=== PATIENT | female | born 1945 | race Caucasian/White ===

== ENCOUNTER 2020-05-06 14:24 | Inpatient (IN) | payer MEDICARE, OTHER ==
[~2020-05-06] VITALS: Ht 160 cm; Wt 67.6 kg
[2020-05-06] MEDS ORDERED: TORADOL (14:34)
[2020-05-06] MEDS ORDERED: LOSARTAN (14:34)
[2020-05-06 16:03] LABS: BASOPHILS % (AUTO) 0.1 % (0.0-2.0); HEMATOCRIT 37.7 % (31.2-41.9); HEMOGLOBIN 12.4 g/dL (10.9-14.3); LYMPHOCYTES # (AUTO) 0.4 K/uL (20.0-40.0); LYMPHOCYTES % (AUTO) 4.3 % (20.5-51.5); MEAN CORPUSCULAR HEMOGLOBIN 29.7 uug (24.7-32.8); MEAN CORPUSCULAR HGB CONC 33 g/dL (32.3-35.6); MEAN CORPUSCULAR VOLUME 90.3 fL (75.5-95.3); MONOCYTES # (AUTO) 0.5 K/uL (2.0-10.0); MONOCYTES % (AUTO) 6.1 % (0.0-11.0); NEUTROPHILS % (AUTO) 89.5 % (38.5-71.5); PLATELET COUNT (AUTO) 308 K/uL (179-408); RED BLOOD CELL COUNT(AUTO) 4.17 MIL/uL (3.63-4.92); WHITE BLOOD COUNT (AUTO) 8.9 K/uL (3.8-11.8)
[2020-05-06 16:22] LABS: CREATININE 0.8 mg/dL (0.6-1.3); POTASSIUM 3.5 mmol/L (3.5-5.1)
[2020-05-06 16:28] LABS: BILIRUBIN,DIRECT 0.2 mg/dL (0.0-0.2); BILIRUBIN,TOTAL 0.5 mg/dL (0.2-1.0); TOTAL PROTEIN, SERUM 7.6 g/dL (6.4-8.2)
[2020-05-06 16:28] LABS: FERRITIN 537 ng/mL (8-252); LACTATE DEHYDROGENASE 520 U/L (81-234)
[2020-05-06 16:49] LABS: *BILIRUBIN,URIN NEGATIVE (NEGATIVE); *COLOR,URINE YELLOW (YELLOW); *KETONES,URINE 1+ (NEGATIVE); LEUKOCYTE ESTERASE ,URINE NEGATIVE (NEGATIVE); NITRITE, URINE NEGATIVE (NEGATIVE); PH,URINE 7.5 (5.0-8.0); UGLUCOSE NEGATIVE (NEGATIVE)
[2020-05-06 16:50] LABS: *BLOOD, URINE TRACE (NEGATIVE)
[2020-05-06 16:58] LABS: *CLARITY,URINE SLIGHTLY HAZY (CLEAR); BACTERIA,URINE NONE SEEN /HPF (NONE SEEN); SQUAMOUS EPITHELIAL CELL,UR FEW /HPF (NONE SEEN); WBC,URINE 0-3 /HPF (0-3)
[2020-05-06] MEDS ORDERED: IV NORMAL SALINE 250 ML IV ONE (16:59)
[2020-05-06] MEDS ORDERED: SWABABLE VALVE TRANSFER SET EA MC ONE (16:59)
[2020-05-06] MEDS ORDERED: IOHEXOL 350 100 ML INFUS..BTL ONE (16:59)
[2020-05-06] MEDS ORDERED: CEFTRIAXONE 1 G in IV DEXTROSE 5% 50 ML IV ONE (17:15)
[2020-05-06] MEDS ORDERED: AZITHROMYCIN IV 500 MG in IV DEXTROSE 5% 250 ML IV ONE (17:15)
--- NOTE | 2020-05-06 17:20 | NUR ---
Received telephone call from pt's daughter Vera ([phone]), plan of care discussed. Daughter stated she will call back later for an update.
[2020-05-06] MEDS ORDERED: CEFTRIAXONE /D5W 50ML IVPB **ER PYXIS IV ONE (17:30)
[2020-05-06] MEDS ORDERED: AZITHROMYCIN 500MG/ D5W 250ML IVPB **ER PYXIS ONLY IV ONE (17:30)
--- NOTE | 2020-05-06 18:27 | NUR ---
* IV Rocephin 1 gram was given@[id number].
--- NOTE | 2020-05-06 18:28 | NUR ---
Patient is resting comfortably on gurney with eyes closed, no available inpatient telemetry bed & nurse@this time.
[2020-05-06] MEDS ORDERED: CEFTRIAXONE 1 G in IV DEXTROSE 5% 50 ML IV SCH (18:30)
[2020-05-06] MEDS ORDERED: ASPIRIN 81 MG TAB.CHEW GT SCH (18:30)
--- NOTE | 2020-05-06 19:01 | NUR ---
Hands off report given to AKSHAT Ivan. Patient is now a telemetry patient, pending available telemetry nurse & bed in 3rd floor.
--- NOTE | 2020-05-06 20:00 | NUR ---
Patient in room A/Ox3. Patient c/o CP upon cough with SOB. Patient on 2 Liters of O2 N/C satting at 97%. Provided comfort and safety measures.
[2020-05-06] MEDS: ACETAMINOPHEN 325 MG TABLET PO PRN (21:28)
[2020-05-06] MEDS ORDERED: ACETAMINOPHEN 325 MG TABLET ONE (21:32)
[2020-05-07] MEDS: ONDANSETRON 4 MG/2 ML VIAL IV PRN ×3 (02:05→17:26)
[2020-05-07] MEDS ORDERED: ONDANSETRON 4 MG/2 ML VIAL ONE ×3 (02:06→17:33)
[2020-05-07 07:28] LABS: BASOPHILS % (AUTO) 0.2 % (0.0-2.0); HEMATOCRIT 35.8 % (31.2-41.9); HEMOGLOBIN 12.5 g/dL (10.9-14.3); LYMPHOCYTES # (AUTO) 0.8 K/uL (20.0-40.0); LYMPHOCYTES % (AUTO) 9.6 % (20.5-51.5); MEAN CORPUSCULAR HEMOGLOBIN 30.9 uug (24.7-32.8); MEAN CORPUSCULAR HGB CONC 35 g/dL (32.3-35.6); MEAN CORPUSCULAR VOLUME 88.6 fL (75.5-95.3); MONOCYTES # (AUTO) 0.6 K/uL (2.0-10.0); NEUTROPHILS # (AUTO) 6.6 K/uL (1.8-8.9); NEUTROPHILS % (AUTO) 82.2 % (38.5-71.5); PLATELET COUNT (AUTO) 310 K/uL (179-408); RED BLOOD CELL COUNT(AUTO) 4.04 MIL/uL (3.63-4.92)
[2020-05-07 07:41] LABS: BILIRUBIN,TOTAL 0.6 mg/dL (0.2-1.0); CREATININE 0.8 mg/dL (0.6-1.3); MAGNESIUM 1.9 mg/dL (1.8-2.4); PHOSPHOROUS 2.8 mg/dL (2.5-4.9); POTASSIUM 3.7 mmol/L (3.5-5.1); TOTAL PROTEIN, SERUM 7.2 g/dL (6.4-8.2)
[2020-05-07] MEDS ORDERED: ASPIRIN 81 MG TAB.CHEW ONE (09:04)
[2020-05-07] MEDS ORDERED: ACETAMINOPHEN 325 MG TABLET ONE ×2 (09:05→17:33)
[2020-05-07] MEDS: ACETAMINOPHEN 325 MG TABLET PO PRN ×2 (09:10→17:26)
[2020-05-07] MEDS: ASPIRIN EC 81 MG TABLET.DR PO SCH (09:10)
[2020-05-07 09:16] LABS: THYROID STIMULATING HORMONE 0.61 mIU/mL (0.358-3.740)
[2020-05-07] MEDS ORDERED: DEXTROSE 50% 50 ML DISP.SYRIN IV PRN (10:15)
[2020-05-07] MEDS: BLOOD SUGAR DIAGNOSTIC 1 EACH STRIP VI SCH ×3 (11:50→22:47)
[2020-05-07] MEDS: ENOXAPARIN SODIUM 40 MG/0.4 ML DISP.SYRIN SQ SCH (12:02)
[2020-05-07] MEDS ORDERED: ENOXAPARIN SODIUM 40 MG/0.4 ML DISP.SYRIN SQ ONE (12:07)
[2020-05-07] MEDS: CEFTRIAXONE 1 G in IV DEXTROSE 5% 50 ML IV SCH (17:27)
[2020-05-07] MEDS ORDERED: CEFTRIAXONE /D5W 50ML IVPB **ER PYXIS IV ONE (17:34)
[2020-05-07] MEDS: AZITHROMYCIN 250 MG TABLET PO SCH (18:17)
[2020-05-07] MEDS ORDERED: AZITHROMYCIN 250 MG TABLET ONE (18:28)
--- NOTE | 2020-05-07 21:25 | NUR ---
Pt. admitted to tele covid unit room 330 , under care of Dr. Chappell Belongs List completed and all belongings sent
[2020-05-07 22:11] VITALS: BP 157/76
[2020-05-08] MEDS: ONDANSETRON 4 MG/2 ML VIAL IV PRN (00:35)
[2020-05-08] MEDS: LORAZEPAM 0.5 MG TABLET PO PRN (03:23)
[2020-05-08 06:15] VITALS: BP 123/69
[2020-05-08] MEDS: BLOOD SUGAR DIAGNOSTIC 1 EACH STRIP VI SCH ×4 (07:18→22:08)
[2020-05-08 07:28] LABS: BASOPHILS % (AUTO) 0.2 % (0.0-2.0); HEMATOCRIT 37.1 % (31.2-41.9); HEMOGLOBIN 12.8 g/dL (10.9-14.3); LYMPHOCYTES # (AUTO) 0.7 K/uL (20.0-40.0); LYMPHOCYTES % (AUTO) 7.7 % (20.5-51.5); MEAN CORPUSCULAR HEMOGLOBIN 30.8 uug (24.7-32.8); MEAN CORPUSCULAR HGB CONC 35 g/dL (32.3-35.6); MEAN CORPUSCULAR VOLUME 89.4 fL (75.5-95.3); MONOCYTES # (AUTO) 0.7 K/uL (2.0-10.0); MONOCYTES % (AUTO) 8.5 % (0.0-11.0); NEUTROPHILS # (AUTO) 7.2 K/uL (1.8-8.9); NEUTROPHILS % (AUTO) 83.6 % (38.5-71.5); PLATELET COUNT (AUTO) 336 K/uL (179-408); RED BLOOD CELL COUNT(AUTO) 4.15 MIL/uL (3.63-4.92); WHITE BLOOD COUNT (AUTO) 8.6 K/uL (3.8-11.8)
--- NOTE | 2020-05-08 07:30 | NUR ---
Received patient in bed, Awake alert and oriented. No sign of distress noted. Safety precautions are in place. Will continue to monitor.
[2020-05-08 07:42] LABS: CREATININE 0.9 mg/dL (0.6-1.3); MAGNESIUM 1.9 mg/dL (1.8-2.4); PHOSPHOROUS 2.7 mg/dL (2.5-4.9); POTASSIUM 3.7 mmol/L (3.5-5.1)
[2020-05-08] MEDS: ACETAMINOPHEN 325 MG TABLET PO PRN ×2 (10:17→22:09)
[2020-05-08] MEDS: METFORMIN HCL 500 MG TABLET PO SCH ×2 (10:17→17:14)
[2020-05-08] MEDS: ASPIRIN EC 81 MG TABLET.DR PO SCH (10:17)
[2020-05-08] MEDS: ENOXAPARIN SODIUM 40 MG/0.4 ML DISP.SYRIN SQ SCH (10:19)
[2020-05-08 12:22] VITALS: BP 113/71
[2020-05-08 16:13] VITALS: BP 143/78
[2020-05-08] MEDS: AZITHROMYCIN 250 MG TABLET PO SCH (17:14)
[2020-05-08] MEDS: CEFTRIAXONE 1 G in IV DEXTROSE 5% 50 ML IV SCH (17:15)
[2020-05-08] MEDS: INSULIN REGULAR, HUMAN 300 UNIT/3 ML VIAL SQ PRN (19:02)
--- NOTE | 2020-05-08 19:30 | NUR ---
RECEIVED PT AWAKE, ALERT, AND ORIENTEDX4. PT IN NO ACUTE DISTRESS. IV INTACT. PT ON 3L NASAL CANNULA. PT ON NORMAL SINUS RHYTHM. SAFETY AND COMFORT PROVIDED. WILL CONTINUE TO MONITOR.
[2020-05-08] MEDS ORDERED: REMDESIVIR (CHARGED) 200 MG in IV NORMAL SALINE 210 ML IV ONE (20:00)
[2020-05-08 20:42] VITALS: BP 139/71
[2020-05-08 21:07] VITALS: BP 135/65
[2020-05-08 21:52] VITALS: BP 130/68
--- NOTE | 2020-05-08 22:00 | NUR ---
remdesivir done. pt tolerated it well. no adverse reaction.
[2020-05-08] MEDS: DEXAMETHASONE SOD PHOSPHATE 10 MG INJ IV SCH (22:15)
[2020-05-09 00:38] VITALS: BP 127/58
[2020-05-09] MEDS: LORAZEPAM 0.5 MG TABLET PO PRN ×2 (03:42→22:12)
[2020-05-09 04:43] VITALS: BP 124/67
--- NOTE | 2020-05-09 06:28 | NUR ---
PT SLEPT INTERMITTENTLY. PRESCRIBED MEDICATION GIVEN AND PT TOLERATED IT WELL. IV INTACT. PT ON 3L NASAL CANNULA. PT ON SINUS RHYTHM. PT WAS GIVEN TYLENOL 650 MG AT 2209H FOR PAIN AND ATIVAN 0.5MG PRN AT 0342HAS PER PT REQUEST. PT TOLERATED IT WELL. PT EDUCATED THAT HE HAS CHF SO LIMIT INTAKE. SAFETY AND COMFORT PROVIDED. ALL NEEDS ARE MET. WILL CONTINUE TO MONITOR. Addendum: 05/09/20 at 0629 by NAVJOT WAGNER RN WRONG PT.
--- NOTE | 2020-05-09 06:29 | NUR ---
PT SLEPT INTERMITTENTLY. PRESCRIBED MEDICATION GIVEN AND PT TOLERATED IT WELL. IV INTACT. PT ON 3L NASAL CANNULA. PT ON SINUS RHYTHM. PT WAS GIVEN TYLENOL 650 MG AT 2209H FOR PAIN AND ATIVAN 0.5MG PRN AT 0342HAS PER PT REQUEST. PT TOLERATED IT WELL. PT AMBULATORY. SAFETY AND COMFORT PROVIDED. ALL NEEDS ARE MET. WILL CONTINUE TO MONITOR.
[2020-05-09] MEDS: BLOOD SUGAR DIAGNOSTIC 1 EACH STRIP VI SCH ×4 (06:30→20:56)
[2020-05-09 07:14] LABS: BILIRUBIN,DIRECT 0.1 mg/dL (0.0-0.2); BILIRUBIN,TOTAL 0.3 mg/dL (0.2-1.0); CREATININE 0.8 mg/dL (0.6-1.3); MAGNESIUM 2.1 mg/dL (1.8-2.4); PHOSPHOROUS 3.1 mg/dL (2.5-4.9); TOTAL PROTEIN, SERUM 7.1 g/dL (6.4-8.2)
[2020-05-09 07:17] LABS: HEMATOCRIT 34.2 % (31.2-41.9); HEMOGLOBIN 11.8 g/dL (10.9-14.3); LYMPHOCYTES # (AUTO) 0.3 K/uL (20.0-40.0); LYMPHOCYTES % (AUTO) 5.5 % (20.5-51.5); MEAN CORPUSCULAR HGB CONC 35 g/dL (32.3-35.6); MONOCYTES # (AUTO) 0.2 K/uL (2.0-10.0); MONOCYTES % (AUTO) 3.6 % (0.0-11.0); NEUTROPHILS # (AUTO) 4.7 K/uL (1.8-8.9); NEUTROPHILS % (AUTO) 90.9 % (38.5-71.5); PLATELET COUNT (AUTO) 362 K/uL (179-408); WHITE BLOOD COUNT (AUTO) 5.2 K/uL (3.8-11.8)
[2020-05-09 08:00] VITALS: BP 131/66
[2020-05-09] MEDS: INSULIN REGULAR, HUMAN 300 UNIT/3 ML VIAL SQ PRN ×4 (08:26→21:00)
[2020-05-09] MEDS: METFORMIN HCL 500 MG TABLET PO SCH ×2 (08:27→18:54)
[2020-05-09] MEDS: ASPIRIN EC 81 MG TABLET.DR PO SCH (08:56)
[2020-05-09] MEDS: DEXAMETHASONE SOD PHOSPHATE 10 MG INJ IV SCH (08:57)
[2020-05-09] MEDS: ENOXAPARIN SODIUM 40 MG/0.4 ML DISP.SYRIN SQ SCH (08:59)
[2020-05-09] MEDS: ACETAMINOPHEN 325 MG TABLET PO PRN ×2 (09:31→22:12)
[2020-05-09 12:00] VITALS: BP 141/69
[2020-05-09 16:00] VITALS: BP 150/71
[2020-05-09] MEDS: CEFTRIAXONE 1 G in IV DEXTROSE 5% 50 ML IV SCH (16:50)
[2020-05-09] MEDS: AZITHROMYCIN 250 MG TABLET PO SCH (18:54)
--- NOTE | 2020-05-09 19:45 | NUR ---
PATIENT ALERT ORIENTED, NO SOB NO CHEST PAIN, PATIENT ON TELE MONITOR SINUS RHYTHM. PATIENT HAS NO COMPLAIN OF PAIN AT THIS TIME. PATIENT REMAIN ON DROPLET/CONTACT ISOLATION, PATIENT ON 3LPM SAT 93-96%. CONT TO MONITOR.
[2020-05-09] MEDS ORDERED: REMDESIVIR (CHARGED) 100 MG in IV NORMAL SALINE 230 ML IV SCH (20:00)
--- NOTE | 2020-05-09 20:18 | NUR ---
Just placed on 2L NC from 3L, denied SOB or distress at this time. Stable throughout shift. No other complaints at this time
[2020-05-09 20:27] VITALS: BP 154/80
[2020-05-09] MEDS: REMDESIVIR (CHARGED) 100 MG in IV NORMAL SALINE 100 ML IV SCH (20:48)
--- NOTE | 2020-05-09 22:12 | NUR ---
PATIENT HAS EPISODE OF ANXIETY, NEEDY AT THIS TIME. PATIENT COMPLAIN OF INSOMNIA, GIVEN PATIENT TYLENOL 650MG PLUS ATIVAN PO ORDERED. CONT TO MONITOR.
--- NOTE | 2020-05-09 23:12 | NUR ---
PATIENT ASLEEP, TYLENOL AND ATIVAN PO EFFECTIVE, NO ADVERSE REACTION NOTED. CONT TO MONITOR.
[2020-05-10 00:21] VITALS: BP 142/76
--- NOTE | 2020-05-10 04:12 | NUR ---
PATIENT ASLEEP BUT EASILY AROUSABLE, NO SOB NO CHEST PAIN. PATIENT TOLERATE 2LPM OXYGEN, NO COMPLAIN OF PAIN AT THIS TIME. CONT TO MONITOR.
[2020-05-10] MEDS: BLOOD SUGAR DIAGNOSTIC 1 EACH STRIP VI SCH ×4 (05:57→21:12)
[2020-05-10 05:58] VITALS: BP 147/76
[2020-05-10] MEDS: ACETAMINOPHEN 325 MG TABLET PO PRN (06:39)
--- NOTE | 2020-05-10 06:51 | NUR ---
Complain of headaches request for tylenol. Patient on 2lpm nc, sat 90-94%, encourage patient to kept hob elevated when lying down, noted patient lying flat when sleeping. cont to monitor.
[2020-05-10 08:44] LABS: BASOPHILS % (AUTO) 0.1 % (0.0-2.0); HEMATOCRIT 34.4 % (31.2-41.9); HEMOGLOBIN 11.7 g/dL (10.9-14.3); LYMPHOCYTES # (AUTO) 0.7 K/uL (20.0-40.0); LYMPHOCYTES % (AUTO) 7.8 % (20.5-51.5); MEAN CORPUSCULAR HEMOGLOBIN 30.6 uug (24.7-32.8); MEAN CORPUSCULAR HGB CONC 34 g/dL (32.3-35.6); MEAN CORPUSCULAR VOLUME 89.7 fL (75.5-95.3); MONOCYTES # (AUTO) 0.7 K/uL (2.0-10.0); MONOCYTES % (AUTO) 8.1 % (0.0-11.0); NEUTROPHILS # (AUTO) 7.3 K/uL (1.8-8.9); PLATELET COUNT (AUTO) 429 K/uL (179-408); RED BLOOD CELL COUNT(AUTO) 3.83 MIL/uL (3.63-4.92); WHITE BLOOD COUNT (AUTO) 8.7 K/uL (3.8-11.8)
[2020-05-10 08:59] LABS: BILIRUBIN,DIRECT 0.2 mg/dL (0.0-0.2); BILIRUBIN,TOTAL 0.3 mg/dL (0.2-1.0); CREATININE 0.9 mg/dL (0.6-1.3); MAGNESIUM 2.1 mg/dL (1.8-2.4); PHOSPHOROUS 2.5 mg/dL (2.5-4.9); POTASSIUM 3.9 mmol/L (3.5-5.1); TOTAL PROTEIN, SERUM 7.1 g/dL (6.4-8.2)
[2020-05-10] MEDS: METFORMIN HCL 500 MG TABLET PO SCH ×2 (09:51→18:04)
[2020-05-10] MEDS: DEXAMETHASONE SOD PHOSPHATE 10 MG INJ IV SCH (09:51)
[2020-05-10] MEDS: ASPIRIN EC 81 MG TABLET.DR PO SCH (09:51)
[2020-05-10] MEDS: ENOXAPARIN SODIUM 40 MG/0.4 ML DISP.SYRIN SQ SCH (09:54)
[2020-05-10] MEDS: LOSARTAN POTASSIUM 50 MG TABLET PO SCH ×2 (10:08→21:07)
[2020-05-10 11:54] VITALS: BP 148/57
[2020-05-10 16:00] VITALS: BP 157/81
[2020-05-10] MEDS: CEFTRIAXONE 1 G in IV DEXTROSE 5% 50 ML IV SCH (18:04)
[2020-05-10] MEDS: AZITHROMYCIN 250 MG TABLET PO SCH (18:04)
[2020-05-10] MEDS: INSULIN REGULAR, HUMAN 300 UNIT/3 ML VIAL SQ PRN ×2 (18:41→21:20)
[2020-05-10 20:21] VITALS: BP 134/72
[2020-05-10] MEDS: REMDESIVIR (CHARGED) 100 MG in IV NORMAL SALINE 100 ML IV SCH (21:04)
--- NOTE | 2020-05-10 21:04 | NUR ---
On O2 @ 2L, denied SOB or distress at this time. Safety precaution in place. Not in any acute distress, no other complaints at this time
[2020-05-10] MEDS: LORAZEPAM 0.5 MG TABLET PO PRN (23:19)
[2020-05-11 00:06] VITALS: BP 153/63
[2020-05-11 04:15] VITALS: BP 156/78
[2020-05-11] MEDS: BLOOD SUGAR DIAGNOSTIC 1 EACH STRIP VI SCH ×4 (06:07→20:12)
--- NOTE | 2020-05-11 06:34 | NUR ---
Patient slept well.No acute distress noted through out the shift.S/p midline insertion on right upper arm 18 g.No active bleeding noted.Patient remained with O2 at 2LPM via NC saturating at 93%.Ambulates to bathroom.Continue on isolation for covid.Call light and belongings with in reach.Will continue to monitor.
[2020-05-11] MEDS: METFORMIN HCL 500 MG TABLET PO SCH ×2 (08:00→17:37)
[2020-05-11 08:35] LABS: BILIRUBIN,DIRECT 0.1 mg/dL (0.0-0.2); BILIRUBIN,TOTAL 0.3 mg/dL (0.2-1.0); CREATININE 0.8 mg/dL (0.6-1.3); POTASSIUM 3.9 mmol/L (3.5-5.1); TOTAL PROTEIN, SERUM 6.6 g/dL (6.4-8.2)
[2020-05-11] MEDS: LOSARTAN POTASSIUM 50 MG TABLET PO SCH ×2 (09:00→20:08)
[2020-05-11] MEDS: DEXAMETHASONE SOD PHOSPHATE 10 MG INJ IV SCH (09:13)
[2020-05-11] MEDS: ASPIRIN EC 81 MG TABLET.DR PO SCH (09:13)
[2020-05-11] MEDS: ENOXAPARIN SODIUM 40 MG/0.4 ML DISP.SYRIN SQ SCH (09:15)
[2020-05-11 09:53] LABS: BASOPHILS # (AUTO) 0.2 K/uL (0.0-8.0); BASOPHILS % (AUTO) 1.8 % (0.0-2.0); EOSINOPHILS % (AUTO) 0.1 % (0.0-7.0); HEMATOCRIT 34.6 % (31.2-41.9); HEMOGLOBIN 11.4 g/dL (10.9-14.3); LYMPHOCYTES # (AUTO) 0.7 K/uL (20.0-40.0); LYMPHOCYTES % (AUTO) 5.5 % (20.5-51.5); MEAN CORPUSCULAR HEMOGLOBIN 29.8 uug (24.7-32.8); MEAN CORPUSCULAR HGB CONC 33 g/dL (32.3-35.6); MEAN CORPUSCULAR VOLUME 90.2 fL (75.5-95.3); MONOCYTES # (AUTO) 0.9 K/uL (2.0-10.0); MONOCYTES % (AUTO) 7.6 % (0.0-11.0); NEUTROPHILS # (AUTO) 10.4 K/uL (1.8-8.9); PLATELET COUNT (AUTO) 445 K/uL (179-408); RED BLOOD CELL COUNT(AUTO) 3.84 MIL/uL (3.63-4.92); WHITE BLOOD COUNT (AUTO) 12.3 K/uL (3.8-11.8)
[2020-05-11 16:00] VITALS: BP 141/71
[2020-05-11] MEDS ORDERED: BISACODYL 5 MG TABLET.DR PO ONE (17:30)
[2020-05-11] MEDS: INSULIN REGULAR, HUMAN 300 UNIT/3 ML VIAL SQ PRN ×2 (17:41→21:55)
[2020-05-11] MEDS: CEFTRIAXONE 1 G in IV DEXTROSE 5% 50 ML IV SCH (17:48)
--- NOTE | 2020-05-11 19:40 | NUR ---
Patient is alert and oriented x4. respirations are even and unlabored, no signs of respiratory distress noted. Patient receiving 2 L O2 via NC, tolerating well. Midline catheter in SIVAKUMAR patent and intact, no signs of infection noted. Patient's belongings and call light placed within reach. Patient's needs met during this shift.
[2020-05-11 20:12] VITALS: BP 141/71
[2020-05-11] MEDS: REMDESIVIR (CHARGED) 100 MG in IV NORMAL SALINE 100 ML IV SCH (20:52)
[2020-05-11] MEDS: LORAZEPAM 0.5 MG TABLET PO PRN (22:05)
[2020-05-12 00:12] VITALS: BP 158/66
[2020-05-12 04:12] VITALS: BP 149/65
[2020-05-12] MEDS: BLOOD SUGAR DIAGNOSTIC 1 EACH STRIP VI SCH ×4 (06:41→20:33)
--- NOTE | 2020-05-12 07:08 | NUR ---
Handing patient off to AM nurse. Stable condition. VSS. Safety measures in place. Plan of care continued. Will endorse all pertinent information.
[2020-05-12 07:31] LABS: BASOPHILS % (AUTO) 0.2 % (0.0-2.0); EOSINOPHILS % (AUTO) 0.1 % (0.0-7.0); HEMATOCRIT 34.7 % (31.2-41.9); HEMOGLOBIN 11.7 g/dL (10.9-14.3); LYMPHOCYTES # (AUTO) 1.3 K/uL (20.0-40.0); LYMPHOCYTES % (AUTO) 10.6 % (20.5-51.5); MEAN CORPUSCULAR HEMOGLOBIN 30.3 uug (24.7-32.8); MEAN CORPUSCULAR HGB CONC 34 g/dL (32.3-35.6); MEAN CORPUSCULAR VOLUME 89.8 fL (75.5-95.3); MONOCYTES % (AUTO) 8.1 % (0.0-11.0); NEUTROPHILS # (AUTO) 10.2 K/uL (1.8-8.9); PLATELET COUNT (AUTO) 473 K/uL (179-408); RED BLOOD CELL COUNT(AUTO) 3.87 MIL/uL (3.63-4.92); WHITE BLOOD COUNT (AUTO) 12.6 K/uL (3.8-11.8)
[2020-05-12 07:44] LABS: BILIRUBIN,DIRECT 0.2 mg/dL (0.0-0.2); BILIRUBIN,TOTAL 0.4 mg/dL (0.2-1.0); CREATININE 0.8 mg/dL (0.6-1.3); POTASSIUM 3.3 mmol/L (3.5-5.1); TOTAL PROTEIN, SERUM 6.8 g/dL (6.4-8.2)
[2020-05-12] MEDS ORDERED: POTASSIUM CHLORIDE 20 MEQ TAB.PRT.SR PO ONE (09:00)
[2020-05-12] MEDS: METFORMIN HCL 500 MG TABLET PO SCH ×2 (09:22→17:04)
[2020-05-12] MEDS: LOSARTAN POTASSIUM 50 MG TABLET PO SCH ×2 (09:23→20:33)
[2020-05-12] MEDS: DEXAMETHASONE SOD PHOSPHATE 10 MG INJ IV SCH (09:23)
[2020-05-12] MEDS: HYDROCORTISONE 10 MG TABLET PO SCH (09:24)
[2020-05-12] MEDS: ACETAMINOPHEN 325 MG TABLET PO PRN ×2 (09:50→20:34)
[2020-05-12] MEDS: ASPIRIN EC 81 MG TABLET.DR PO SCH (09:56)
[2020-05-12] MEDS: LORAZEPAM 0.5 MG TABLET PO PRN (09:56)
[2020-05-12] MEDS: ENOXAPARIN SODIUM 40 MG/0.4 ML DISP.SYRIN SQ SCH (09:57)
[2020-05-12 12:00] VITALS: BP 102/50
[2020-05-12] MEDS: INSULIN REGULAR, HUMAN 300 UNIT/3 ML VIAL SQ PRN ×2 (16:53→20:35)
[2020-05-12 17:37] VITALS: BP 137/74
--- NOTE | 2020-05-12 18:42 | NUR ---
patient is stable on 02 2 liter via nasal canula, no fever no chills noted during shift
--- NOTE | 2020-05-12 19:00 | NUR ---
Received patient from AM nurse. Safety measures in place. Assessments in progress. Continue plan of care. Will monitor and assess.
[2020-05-12] MEDS: REMDESIVIR (CHARGED) 100 MG in IV NORMAL SALINE 100 ML IV SCH (19:51)
[2020-05-12 20:06] VITALS: BP 128/66
[2020-05-13 04:06] VITALS: BP 150/69
[2020-05-13 06:26] LABS: BASOPHILS # (AUTO) 0.1 K/uL (0.0-8.0); BASOPHILS % (AUTO) 0.6 % (0.0-2.0); EOSINOPHILS % (AUTO) 0.4 % (0.0-7.0); HEMATOCRIT 35.1 % (31.2-41.9); HEMOGLOBIN 11.8 g/dL (10.9-14.3); LYMPHOCYTES # (AUTO) 0.9 K/uL (20.0-40.0); LYMPHOCYTES % (AUTO) 9.7 % (20.5-51.5); MEAN CORPUSCULAR HEMOGLOBIN 30.4 uug (24.7-32.8); MEAN CORPUSCULAR HGB CONC 34 g/dL (32.3-35.6); MEAN CORPUSCULAR VOLUME 90.2 fL (75.5-95.3); MONOCYTES # (AUTO) 0.9 K/uL (2.0-10.0); NEUTROPHILS % (AUTO) 79.3 % (38.5-71.5); PLATELET COUNT (AUTO) 502 K/uL (179-408); RED BLOOD CELL COUNT(AUTO) 3.89 MIL/uL (3.63-4.92); WHITE BLOOD COUNT (AUTO) 8.8 K/uL (3.8-11.8)
[2020-05-13 06:43] LABS: CREATININE 0.7 mg/dL (0.6-1.3); POTASSIUM 3.9 mmol/L (3.5-5.1)
[2020-05-13] MEDS: BLOOD SUGAR DIAGNOSTIC 1 EACH STRIP VI SCH ×2 (07:30→11:30)
[2020-05-13] MEDS: HYDROCORTISONE 10 MG TABLET PO SCH (08:31)
[2020-05-13] MEDS: LOSARTAN POTASSIUM 50 MG TABLET PO SCH (08:32)
[2020-05-13] MEDS: DEXAMETHASONE SOD PHOSPHATE 10 MG INJ IV SCH (08:32)
[2020-05-13] MEDS: ASPIRIN EC 81 MG TABLET.DR PO SCH (08:33)
[2020-05-13] MEDS: METFORMIN HCL 500 MG TABLET PO SCH (08:33)
[2020-05-13] MEDS: ENOXAPARIN SODIUM 40 MG/0.4 ML DISP.SYRIN SQ SCH (08:37)
[2020-05-13] MEDS: INSULIN REGULAR, HUMAN 300 UNIT/3 ML VIAL SQ PRN (08:38)
[2020-05-13 12:00] VITALS: BP 134/67
== END 2020-05-13 13:30 | disposition home health service (06) | DRG 177 ==
LOC: ER 14:24 → TRANSITION 18:12 → TELE3 05-07 21:04 → MEDSURG3 05-13 09:24
PROVIDERS: ADMIT Registered Nurse; ATTEND Nurse Practitioner Acute Care
PROC: XW033E5 Introduction of Remdesivir Anti-infective into Peripheral Vein, Percutaneous Approach, New Technology Group 5 (ICD-10-PCS; principal; 2020-05-08)
PROC: 05H533Z Insertion of Infusion Device into Right Subclavian Vein, Percutaneous Approach (ICD-10-PCS; 2020-05-11)
PROC: B546ZZA Ultrasonography of Right Subclavian Vein, Guidance (ICD-10-PCS; 2020-05-11)
DX: U07.1 COVID-19 (principal); J12.82 Pneumonia due to coronavirus disease 2019; J96.01 Acute respiratory failure with hypoxia; J18.9 Pneumonia, unspecified organism; E27.40 Unspecified adrenocortical insufficiency; E44.0 Moderate protein-calorie malnutrition; E88.09 Other disorders of plasma-protein metabolism, not elsewhere classified; I10 Essential (primary) hypertension; M19.90 Unspecified osteoarthritis, unspecified site; Z86.73 Personal history of transient ischemic attack (TIA), and cerebral infarction without residual deficits; F41.9 Anxiety disorder, unspecified; E87.6 Hypokalemia; Z68.26 Body mass index [BMI] 26.0-26.9, adult; Z86.711 Personal history of pulmonary embolism; R07.89 Other chest pain; R74.01 Elevation of levels of liver transaminase levels; D72.828 Other elevated white blood cell count; R73.03 Prediabetes
CPT/HCPCS: 36415; 70030-TC; 71045; 71275; 76700; 83605; 83615; 83735; 84100; 84443; 85025; 85610; 85730; 87040; 87086; 93005; A4663; G0378; J0456; J0696; J1100; J1650; J2405; J3490; J7050; J7060; Q0144; Q9967; U0003